=== PATIENT | female | born 1995 | race Two or more races ===

== ENCOUNTER → 2018-06-08 | Emergency (ER) | payer OTHER ==
[~2018-06-08] VITALS: Ht 157.5 cm; Wt 58.1 kg
[~2018-06-08] MED LIST: OSEL75CA PO
== END | disposition home or self-care (01) ==
LOC: ER 21:42
DX: J11.1 Influenza due to unidentified influenza virus with other respiratory manifestations (principal)

== ENCOUNTER 2018-09-20 16:03 | Emergency (ER) | payer OTHER ==
[~2018-09-20] VITALS: Ht 157.5 cm; Wt 59.0 kg
== END 2018-09-20 18:12 | disposition home or self-care (01) ==
LOC: ER 16:03
DX: B34.9 Viral infection, unspecified (principal)